=== PATIENT | female | born 1965 ===

== ENCOUNTER 2022-03-02 06:34 | Day surgery (SDC) | payer OTHER ==
[~2022-03-02] VITALS: Ht 160 cm; Wt 81.6 kg
[~2022-03-02 06:34] MED LIST: SYNTHROID100 MCG PO
[2022-03-02] MEDS ORDERED: PERCOCET 5-3251 EACH PO (10:29)
== END 2022-03-02 12:55 | disposition home or self-care (01) ==
LOC: CIR.AMB 06:34
PROVIDERS: ATTEND Surgery
DX: D35.1 Benign neoplasm of parathyroid gland (principal); E21.0 Primary hyperparathyroidism; J45.909 Unspecified asthma, uncomplicated; Z86.16 Personal history of COVID-19; G43.909 Migraine, unspecified, not intractable, without status migrainosus; K21.9 Gastro-esophageal reflux disease without esophagitis